=== PATIENT | female | born 1990 | race American Indian/Alaskan Native ===

== ENCOUNTER 2017-12-19 14:08 | Emergency (ER) | payer MEDICAID, OTHER ==
--- NOTE | 2017-12-19 14:18 | ED PDOC ---
Arrival/HPI - General Time Seen by Provider: 12/19/17 14:17 Historian: Patient - History of Present Illness Narrative History of Present Illness (Text): 12/19/17 14:17 27 y/o female, no significant pmh, psychiatric history including schizoaffective , nkda, c/o need prescription for the flagyl gel as she lost it. Pt. stated that she has bacterial vaginosis which told this week which she was given flagyl gel prescriptin but she lost the prescription as her vaginal discharge been smelling like fishy odor as she had bacterial vaginosis before. Pt. received a call this morning from the boyfriend told her that he has chlamydia which she like to be prophylatically treated as well. Pt. has no abdominal pain (pt. disagreed with the triage), no nausea or vomiting, no night sweat, no dizziness, no chest pain or shortness of breath, no other medical or psychological complaints. Past Medical History - Provider Review Nursing Documentation Reviewed: Yes - Infectious Disease Hx of Infectious Diseases: None - Tetanus Immunization Tetanus Immunization: Unknown - Past Medical History Past Medical History: No Previous - Cardiac Hx Cardiac Disorders: No Hx Hypertension: No - Pulmonary Hx Respiratory Disorders: No Hx Tuberculosis: No - Neurological Hx Neurological Disorder: No HX Cerebrovascular Accident: No Hx Seizures: No - HEENT Hx HEENT Disorder: No - Renal Hx Renal Disorder: No - Endocrine/Metabolic Hx Endocrine Disorders: No - Hematological/Oncological Hx Blood Disorders: No Hx Cancer: No - Integumentary Hx Dermatological Disorder: No - Musculoskeletal/Rheumatological Hx Musculoskeletal Disorders: No - Gastrointestinal Hx Gastrointestinal Disorders: No - Genitourinary/Gynecological Hx Genitourinary Disorders: No Hx Sexually Transmitted Diseases: No - Psychiatric Hx Substance Use: No - Past Surgical History Past Surgical History: No Previous - Anesthesia Hx Anesthesia: Yes (epidural) Hx Anesthesia Reactions: No Hx Malignant Hyperthermia: No - Suicidal Assessment Feels Threatened In Home Enviroment: No Family/Social History - Physician Review Nursing Documentation Reviewed: Yes Family/Social History: Unknown Family HX Smoking Status: smokes pot Hx Alcohol Use: Yes (drinks on weekends and gets drunk) Hx Substance Use: No Hx Substance Use Treatment: No Allergies/Home Meds Allergies/Adverse Reactions: Allergies No Known Allergies Allergy (Verified 12/19/17 14:13) Review of Systems - Review of Systems Constitutional: absent: Fatigue, Fevers Eyes: absent: Vision Changes ENT: absent: Hearing Changes Respiratory: absent: SOB, Cough Cardiovascular: absent: Chest Pain Gastrointestinal: absent: Abdominal Pain, Diarrhea, Nausea, Vomiting Musculoskeletal: absent: Arthralgias, Myalgias Skin: absent: Rash, Pruritis Neurological: absent: Headache Psychiatric: absent: Anxiety, Depression, Suicidal Ideation Physical Exam Vital Signs Reviewed: Yes Vital Signs Temp Pulse Resp BP Pulse Ox 12/19/17 15:19 88 18 118/76 98 12/19/17 14:17 99.2 F 115 H 19 113/62 98 12/19/17 14:14 99.2 F 116 H 18 113/62 98 Temperature: Afebrile Blood Pressure: Normal Pulse: Tachycardic Respiratory Rate: Normal Appearance: Positive for: Well-Appearing, Non-Toxic, Comfortable Pain Distress: None Mental Status: Positive for: Alert and Oriented X 3 - Systems Exam Head: Present: Atraumatic, Normocephalic Pupils: Present: PERRL Extroacular Muscles: Present: EOMI Conjunctiva: Present: Normal Mouth: Present: Moist Mucous Membranes Neck: Present: Normal Range of Motion Respiratory/Chest: Present: Clear to Auscultation, Good Air Exchange. No: Respiratory Distress, Accessory Muscle Use Cardiovascular: Present: Regular Rate and Rhythm, Normal S1, S2. No: Murmurs Abdomen: Present: Normal Bowel Sounds. No: Tenderness, Distention, Peritoneal Signs, Rebound, Guarding Genitourinary/Pelvic Exam: Present: Other (Pt. declined. ) Back: Present: Normal Inspection Upper Extremity: Present: Normal Inspection. No: Cyanosis, Edema Lower Extremity: Present: Normal Inspection. No: Edema Neurological: Present: GCS=15, CN II-XII Intact, Speech Normal Skin: Present: Warm, Dry, Normal Color. No: Rashes Psychiatric: Present: Alert, Oriented x 3, Normal Insight, Normal Concentration Medical Decision Making ED Course and Treatment: 12/19/17 14:50 -Pt. refused HIV test and stated that she will have the HIV test done at her pmd office. -UA -Rocephine/azithromycin, pt. request flagyl gel rather than flagyl po for her BV 12/19/17 15:31 -Urine hcg is negative. -UA show no UTI. -Discharge home with flagyl gel, notify all your sexual partners for the STD testing and prophylatic treatment, follow up with your own pmd and obgyn within 2 days, return to the ER for any new or worsening signs or symptoms. - Lab Interpretations Lab Results: Lab Results 12/19/17 14:43: Urine Color Yellow, Urine Appearance Cloudy, Urine pH 6.5, Ur Specific [place] 1.025, Urine Protein Negative, Urine Glucose (UA) Negative, Urine Ketones Negative, Urine Blood Negative, Urine Nitrate Negative, Urine Bilirubin Negative, Urine Urobilinogen 0.2, Ur Leukocyte Esterase Negative - Medication Orders Current Medication Orders: Discontinued Medications Azithromycin (Zithromax) 1,000 mg PO STAT STA PRN Reason: Protocol Stop: 12/19/17 14:33 Last Admin: 12/19/17 14:51 Dose: 1,000 mg Ceftriaxone Sodium (Rocephin) 250 mg IM STAT STA PRN Reason: Protocol Stop: 12/19/17 14:35 Last Admin: 12/19/17 14:51 Dose: 250 mg IM Administration Charges Document 12/19/17 14:51 GMD (Rec: 12/19/17 14:52 GMD [id number]) Injection Site MAR Injection Site Right Gluteus [place] Charges for Administration # of IM Administrations 1 - [place] / [employer] / Resident Statement MD/DO has reviewed & agrees with the documentation as recorded. Disposition/Present on Arrival - Present on Arrival Any Indicators Present on Arrival: No History of DVT/PE: No History of Uncontrolled Diabetes: No Urinary Catheter: No History Surgical Site Infection Following: None - Disposition Have Diagnosis and Disposition been Completed?: Yes Diagnosis: Exposure to STD, Medication refill Disposition: HOME/ ROUTINE Disposition Time: 14:54 Patient Plan: Discharge Patient Problems: Current Active Problems Problem Status Onset Exposure to STD Acute Medication refill Acute Condition: GOOD Additional Instructions: -Discharge home with flagyl gel, notify all your sexual partners for the STD testing and prophylatic treatment, follow up with your own pmd and obgyn within 2 days, return to the ER for any new or worsening signs or symptoms. Prescriptions: metroNIDAZOLE 0.75% [Metrogel Cream] 1 applic TOP DAILY #1 tube Referrals: PCP,NO [Primary Care Provider] - Follow up with primary Chevy Rodriguez [Medical Doctor] - Follow up with primary Forms: WORK NOTE
[2017-12-19 14:30] VITALS: TEMP 99.2; O2SAT 98; BMI 26.6
[2017-12-19] MEDS ORDERED: cefTRIAXone (Rocephin) 250 mg Inj IM STA (14:34)
[2017-12-19 15:02] LABS: PH,URINE 6.5 (4.7-8.0); URINE BILIRUBIN NEGATIVE (NEGATIVE); URINE BLOOD NEGATIVE (NEGATIVE); URINE GLUCOSE (UA) NEGATIVE (NEGATIVE); URINE LEUKOCYTE ESTERASE NEGATIVE Leu/uL (NEGATIVE); URINE PROTEIN NEGATIVE mg/dL (<30 mg/dL); URINE UROBILINOGEN 0.2 E.U./dL (<1 E.U./dL)
[2017-12-19 15:04] LABS: URINE APPEARANCE CLOUDY (CLEAR); URINE COLOR YELLOW (YELLOW)
[2017-12-19 15:19] VITALS: BP 118/76; PULSE 88; RESP 18
== END 2017-12-19 15:52 | disposition home or self-care (01) ==
LOC: ED 14:08
DX: Z76.0 Encounter for issue of repeat prescription (principal); Z20.2 Contact with and (suspected) exposure to infections with a predominantly sexual mode of transmission
CPT/HCPCS: 81003; 87491; 87591; 96372; 99284; J0696